=== PATIENT | female | born 1990 | race Caucasian/White ===

== ENCOUNTER 2022-01-26 01:18 | Inpatient (IN) | payer OTHER ==
[2022-01-26] VITALS (21 sets, daily range): BP systolic 96–142; BP diastolic 48–98; PULSE 81–117; TEMP 98.1–98.8
[~2022-01-26] VITALS: Ht 162.6 cm; Wt 98.6 kg
[2022-01-26] MEDS ORDERED: FIORICET 325 MG1 TA1 PO (01:38)
[2022-01-26] MEDS ORDERED: PROTONIX20 MG PO (01:39)
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
[2022-01-26] MEDS ORDERED: PRENATAL TABLET PO (01:41)
[2022-01-26] MEDS ORDERED: ZOFRAN8 MG PO (01:41)
[2022-01-26] MEDS ORDERED: BENADRYL25 M2 PO (01:42)
--- NOTE | 2022-01-26 02:00 | NUR ---
0200 PT REFUSED STERILE VAG EXAM. HAS PAD ON FROM HOME. PAD DAMP. TESTED WITH AMNIOTRACE AND DID NOT TEST POSITIVE. AMNIOTRACE INSERTED INTO VAGINA AND TEST NEGATIVE. DR WALSH VIEWED AMNIOTRACE Q-TIP. NO ACTIVE LEAKING OF FLUID NOTED BUT SM DAMP SPOT NOTED ON PAD UNDERNEATH PT. DR WALSH GIVES ORDER TO RECHECK IN AN HOUR.
--- NOTE | 2022-01-26 03:20 | NUR ---
0320 IRREGULAR, SHORT CONTRACTIONS NOTED ON EFM. NOT FELT BY PT. PT HAS PAD ON FOR LAST HOUR WITH SM AMOUNT DAMP AREA NOTED. AMNIOTRACE APPLIED TO SPOT WITH NEG RESULTS. TWO SMALL DROPS FLUID NOTED FROM VAGIANL OPENING AND SWABBED WITH AMNIOTRACE WITH INCONCLUSIVE REULTS. AMNIOTRACE REMAINS YELLOW WITH SCANT BLUE AROUND EDGE OF Q-TIP. DR WALSH NOTIFIED AND ORDERS RECEIVED TO KEEP PT AN OUTPT UNTIL MORNING. 0400 RESTING COMFORTABLY IN BED. EFM CONTINUES.
[2022-01-26 08:33] LABS: HEMOGLOBIN 10.6 g/dl (12.5-16.0); MEAN CELL VOLUME 78 fl (80.0-100.0); MEAN CORPUSCULAR HEMOGLOBIN 27 pg (27-31); MEAN CORPUSCULAR HGB CONC 34 g/dl (33.0-37.0); MEAN PLATELET VOLUME 9.5 fl (7.4-10.4); PLATELET COUNT 299 K/mm3 (130-400); RED BLOOD COUNT 3.96 M/mm3 (4.10-5.30); REDCELL DISTRIBUTION WIDTH-CV 12.7 % (11.5-14.5)
[2022-01-26 08:35] LABS: HEMATOCRIT 30.8 % (37.0-47.0)
[2022-01-26 08:58] LABS: BAND 3 % (0-10); EOSINOPHIL 1 % (0-4); LYMPHOCYTE 35 % (20.0-51.0); NEUTROPHILS 60 % (42.0-75.2)
[2022-01-26 08:59] LABS: PLATELET ESTIMATE NORMAL (NORMAL)
[2022-01-27 04:00] VITALS: BP 119/69; PULSE 88; TEMP 98.1
[2022-01-27 08:58] VITALS: BP 121/62; PULSE 75; TEMP 98
[2022-01-27 16:15] VITALS: BP 128/97; PULSE 103; TEMP 98
[2022-01-27 19:30] VITALS: BP 133/73; PULSE 96; TEMP 98.7
[2022-01-28 07:03] VITALS: BP 113/71; PULSE 82; TEMP 97.1
[2022-01-28] MEDS ORDERED: PERCOCET 325 MG1 TA2 PO (08:32)
[2022-01-28] MEDS ORDERED: IBU800 M1 PO (08:32)
--- NOTE | 2022-01-28 09:13 | NUR ---
Initial visit; Patient indisposed, Mycologist talked with Daddy who held son and wished him and Mom congratulations and God's blessings for the of their son and thanked them for choosing [place].
== END 2022-01-28 15:45 | disposition home or self-care (01) | DRG 788 ==
LOC: LDRO 01:18 → OB 07:02 → LDR 07:02 → OB 13:11
PROVIDERS: ADMIT Obstetrics & Gynecology
PROC: 10D00Z1 Extraction of Products of Conception, Low, Open Approach (ICD-10-PCS; principal; 2022-01-26)
DX: O99.344 Other mental disorders complicating childbirth (principal); F41.9 Anxiety disorder, unspecified; O99.62 Diseases of the digestive system complicating childbirth; K21.9 Gastro-esophageal reflux disease without esophagitis; O99.214 Obesity complicating childbirth; Z3A.38 38 weeks gestation of pregnancy; Z37.0 Single live birth; Z79.82 Long term (current) use of aspirin
CPT/HCPCS: J0690; J1100; J1885; J2250; J2370; J2405; J2590; J2704; J2791; J7120